=== PATIENT | female | born 1980 | race Two or more races ===

== ENCOUNTER → 2020-04-29 | Outpatient (CLI) | payer MEDICAID ==
--- NOTE | 2020-04-29 15:16 | RAD ---
PELVIS COMPLETE History: Reason: Pelvic Pain / Spl. Instructions: / History: Comparison: None. Technique: Grayscale and color Doppler imaging of the pelvis was performed using transabdominal technique. Findings: The uterus measures 8.6 x 5.1 x 3.7 cm. Uterus has an unremarkable appearance. The endometrial stripe measures 5.7 mm. Right ovary measures 2.5 x 1.8 x 1.8 cm. Left ovary measures 2.8 x 2.3 x 2.1 cm. Normal Doppler flow to the ovaries. Bilateral ovarian follicles. No adnexal masses are seen. IMPRESSION: 1. Unremarkable pelvic ultrasound. Electronically signed by: Jose Esqueda DO (04/29/2020 3:13 PM) [id number]
== END ==
LOC: US 12:11
PROVIDERS: ATTEND Family Medicine
DX: R10.2 Pelvic and perineal pain (principal)
CPT/HCPCS: 76856